=== PATIENT | male | born 1995 | race Hispanic/Latino ===

== ENCOUNTER 2024-02-05 06:53 | Day surgery (SDC) | payer BC ==
[2024-01-30 09:24] VITALS: BMI 43.0
[2024-02-05] MEDS ORDERED: Sodium Chloride 0.9% 0 ML ONE (08:13)
[2024-02-05] MEDS ORDERED: CEFAZOLIN 2 GM VIAL ONE (08:13)
[2024-02-05] MEDS ORDERED: Tranexamic Acid 1,000 MG/10 ML VIAL ONE (08:18)
[2024-02-05] MEDS ORDERED: Sodium Chloride 0.9% 100 ML ONE (08:18)
[2024-02-05] MEDS ORDERED: Bupivacaine PF 0.5% 30 ML VIAL ONE (08:21)
[2024-02-05] MEDS ORDERED: EPINEPHrine 1 MG/ML VIAL ONE (08:21)
[2024-02-05] MEDS ORDERED: Midazolam HCl 2 mg/2 ml Vial ONE (08:21)
[2024-02-05] MEDS ORDERED: fentaNYL 50 mcg/mL 1 mL Vial ONE ×4 (08:21→13:34)
[2024-02-05] MEDS ORDERED: PROPOFOL 20 ML ONE (09:14)
[2024-02-05] MEDS ORDERED: PROPOFOL 40 ML ONE (09:21)
[2024-02-05] MEDS ORDERED: Lidocaine 1% PF 5 ML VIAL ONE (09:30)
[2024-02-05] MEDS ORDERED: fentaNYL PF 100 MCG/2 ML SYRINGE ONE (09:34)
[2024-02-05] MEDS ORDERED: Ondansetron HCl/PF 4 MG/2 ML Vial IVP PRN (10:40)
[2024-02-05] MEDS ORDERED: Promethazine HCl 25 MG/ML VIAL IM PRN (10:40)
[2024-02-05] MEDS ORDERED: Cyclobenzaprine 10 MG TAB ONE (13:15)
[2024-02-05] MEDS ORDERED: Ondansetron PF 4 MG/2 ML Vial ONE (14:20)
== END 2024-02-05 15:18 | disposition home or self-care (01) ==
LOC: SDC 06:53
PROVIDERS: ATTEND Orthopaedic Surgery
PROC: 0PP Upper Bones, Removal (ICD-10-PCS; principal; 2024-02-05)
PROC: 3E0T3BZ Introduction of Anesthetic Agent into Peripheral Nerves and Plexi, Percutaneous Approach (ICD-10-PCS; principal; 2024-02-05)
PROC: 0PSL04Z Reposition Left Ulna with Internal Fixation Device, Open Approach (ICD-10-PCS; principal; 2024-02-05)
DX: T84.84XA Pain due to internal orthopedic prosthetic devices, implants and grafts, initial encounter (principal); S52.292K Other fracture of shaft of left ulna, subsequent encounter for closed fracture with nonunion; S42.402B Unspecified fracture of lower end of left humerus, initial encounter for open fracture; S64.02XD Injury of ulnar nerve at wrist and hand level of left arm, subsequent encounter; Z98.890 Other specified postprocedural states; Z79.899 Other long term (current) drug therapy; V89.2XXA Person injured in unspecified motor-vehicle accident, traffic, initial encounter
CPT/HCPCS: C1713; C1874; J0171; J0665; J2250; J2405; J2704; J3010

== ENCOUNTER 2024-03-08 01:07 | Inpatient (IN) | payer BC ==
[2024-03-08] MEDS ORDERED: Ondansetron PF 4 MG/2 ML Vial IVP PRN (02:25)
[2024-03-08] MEDS ORDERED: Acetaminophen 325 MG TAB PO PRN (02:25)
[2024-03-08] MEDS ORDERED: Acetaminophen 650 MG Suppository PR PRN (02:25)
[2024-03-08] MEDS ORDERED: Ondansetron ODT 4 MG TAB PO PRN (02:25)
[2024-03-08] MEDS ORDERED: Heparin 10,000 UNITS/ 10 ML VIAL SLOW IVP SCH (02:30)
[2024-03-08 02:59] VITALS: BMI 45.8
[2024-03-08] MEDS: Heparin 25,000 units/D5W 500 ML IVPB SCH (03:31)
[2024-03-08] MEDS ORDERED: Acetaminophen/Codeine 30-300mg Tablet PO PRN (04:00)
[2024-03-08] MEDS ORDERED: Ketorolac Tromethamine 30 MG (1 mL) VIAL IVP PRN (04:00)
[2024-03-08] MEDS ORDERED: Cyclobenzaprine 10 MG TAB PO PRN (04:01)
[2024-03-08 06:22] LABS: #Basophils 0.03 10x3/uL (0.0-0.2); %Basophils 0.3 % (0.0-1.0); %Eosinophils 1.9 % (0.0-10.0); %Lymphocytes 41.4 % (21.0-51.0); %Neutrophils 49.1 % (42.0-75.0); Hematocrit 37.9 % (42.0-52.0); Hemoglobin 13.1 g/dL (14.0-18.0); Mean Corpuscular HGB CONC 34.6 g/dL (32.0-36.0); Mean Corpuscular Hemoglobin 29.9 pg (27.0-31.0); Mean Corpuscular Volume 86.5 fL (78.0-98.0); Mean Platelet Volume 10.3 fL (7.4-10.4); Platelet Count 212 10x3/uL (130-400); RBC Distribution Width 13.7 % (11.5-14.5); Red Blood Cell (RBC) Count 4.38 mill/uL (4.70-6.10)
[2024-03-08 06:33] LABS: Hemoglobin A1c 5.4 % (4.0-6.0)
[2024-03-08 06:40] LABS: Anion Gap 13 mmol/L (10-20); BUN (Urea Nitrogen) 21 mg/dL (8.9-20.6); Calc. Creatinine Clearance 263 mL/min (70-130); Calcium 8.6 mg/dL (7.8-10.44); Carbon Dioxide 22 mmol/L (22-29); Chloride 108 mmol/L (98-107); Estimated GFR 120; Glucose 112 mg/dL (70-105); Potassium 3.4 mmol/L (3.5-5.1); Sodium 140 mmol/L (136-145)
[2024-03-08 06:47] LABS: PTT 239.7 sec (22.9-36.1)
[2024-03-08] MEDS: Famotidine 20 MG TAB PO SCH (08:27)
[2024-03-08] MEDS: Famotidine/PF 20 mg/2ml Vial SLOW IVP SCH (08:31)
[2024-03-08] MEDS: Apixaban 5 MG TAB PO SCH (17:17)
[2024-03-09 09:37] VITALS: BP 131/85; TEMP 97.6
== END 2024-03-09 10:35 | disposition home or self-care (01) | DRG 176 ==
LOC: 2NO 02:12 → OBSVTOIN 10:31
PROVIDERS: ADMIT Student in an Organized Health Care Education/Training Program; ATTEND Internal Medicine
DX: I26.99 Other pulmonary embolism without acute cor pulmonale (principal); Z79.899 Other long term (current) drug therapy; Z98.890 Other specified postprocedural states; Z79.01 Long term (current) use of anticoagulants
CPT/HCPCS: 36415; 71045; 71275; 80048; 80053; 83036; 83690; 83735; 84484; 85025; 85379; 85610; 85730; 93005; 96374; 96375; 96376; G0378; J1644; J1885; Q9967